=== PATIENT | female | born 1990 ===

== ENCOUNTER 2017-04-02 14:24 | Emergency (ER) | payer OTHER ==
[2017-04-02 14:24] VITALS: BMI 24.9
[2017-04-02] MEDS ORDERED: Oxycodone/Acetaminophen 5/325 mg Tab PO STA (14:59)
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
[2017-04-02] MEDS ORDERED: Oxycodone/Acetaminophen 5/325 mg Tab ONE (15:09)
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
[2017-04-02 17:17] VITALS: BP 118/65; PULSE 75; RESP 18; TEMP 98.1
[2017-04-02 17:34] VITALS: O2SAT 100
== END 2017-04-02 17:18 | disposition home or self-care (01) ==
LOC: C.ER 14:24
DX: S33.5XXA Sprain of ligaments of lumbar spine, initial encounter (principal); M54.2 Cervicalgia; V43.52XA Car driver injured in collision with other type car in traffic accident, initial encounter; Y92.410 Unspecified street and highway as the place of occurrence of the external cause